=== PATIENT | female | born 1945 | race African-American/Black ===

== ENCOUNTER 2018-04-20 08:22 | Day surgery (SDC) | payer OTHER ==
[~2018-04-20] VITALS: Ht 162.6 cm; Wt 80.3 kg
[~2018-04-20 08:22] MED LIST: BRINTELLIX10 MG PO; CPAP AT NIGHT; ERGOCALCIF50000 UNIT PO; IBUPROFEN800 MG PO; MELATONIN1 MG PO; MIRTAZAPINE15 MG PO; NEURONTIN300 MG PO; SYMBICORT60 INHALAT IH; THEO-DUR,THEOC300 MG PO; TYLENOL PM EX-1 EACH PO; VENTOLIN HFA18 GM IH; ZITHROMAX Z-PA250 MG PO
[2018-04-20 08:45] VITALS: BP 167/76
[2018-04-20] MEDS ORDERED: ULTRAM50 MG PO (11:37)
[2018-04-20 13:03] VITALS: BP 134/71
[2018-04-20 14:03] VITALS: BP 129/73
[2018-04-20 15:00] VITALS: BP 153/75
== END 2018-04-20 15:21 | disposition home or self-care (01) ==
LOC: SDC 08:22
PROC: 0WUF4JZ Supplement Abdominal Wall with Synthetic Substitute, Percutaneous Endoscopic Approach (ICD-10-PCS; principal; 2018-04-20)
DX: K43.0 Incisional hernia with obstruction, without gangrene (principal); J44.9 Chronic obstructive pulmonary disease, unspecified; K21.9 Gastro-esophageal reflux disease without esophagitis; Z87.891 Personal history of nicotine dependence
CPT/HCPCS: C1781; J0690; J1100; J1170; J2250; J2405; J2710; J3010; J7643; Q0175